=== PATIENT | female | born 1970 | race Caucasian/White ===

== ENCOUNTER → 2023-10-11 | Outpatient (REF) | payer BC, SELFPAY | LOC: DHSLP | PROVIDERS: ATTENDING PHYSICIAN Otolaryngology | DX: G47.33 Obstructive sleep apnea (adult) (pediatric) (principal) | CPT/HCPCS: 95810 ==

== ENCOUNTER 2024-10-07 15:22 | Emergency (ER) | payer BC, SELFPAY ==
--- NOTE | 2024-10-07 18:19 | ED.GENMED ---
History of Present Illness
<Brook Mccabe CARD ASSEMBLER - Last Filed: 10/08/24 23:01>
General
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
Source: patient
Exam Limitations: none
Time Seen by Provider: 10/07/24 18:11
Nursing documentation reviewed up to this point in time: agreed with
History of Present Illness
History of Present Illness:
54-year-old female with history of HTN, has been on Wegovy for the past year, history of in 1999, bladder mesh for prolapse in 2008, laparoscopy, hernia repair and cholecystectomy, presents for abdominal abdominal pain, pressure in her
vaginal area and low back pain after being constipated yesterday and pushing 'too hard' to have a bowel movement. She states 'I mean I was pushing too hard,' and states her vaginal area feels like it did when her daughter's head was about to be
born. She states she has been having frequent urination with small amounts yesterday. She states the vaginal pressure gets bad when she stands to walk.
Past History
<Brook Mccabe CARD ASSEMBLER - Last Filed: 10/08/24 23:01>
Past History
ED Past Medical History: HTN
ED Past Surgical History: Cholecystectomy, , Urological (Bladder mass for prolapse) and Other (Laparoscopy, hernia repair)
Social History
Tobacco: Non-smoker
Alcohol: Occasional
Personal:
Living: with family
Review of Systems
<Brook Mccabe CARD ASSEMBLER - Last Filed: 10/08/24 23:01>
Review of Systems
Allergies reviewed?: Yes
All Other Systems: ROS reviewed and negative except as documented in HPI and ROS
Constitutional: Denies fever
Respiratory: Denies trouble breathing
Cardiac: Denies chest pain
ABD/GI: Reports abdominal pain; Denies nausea, vomiting, diarrhea, bloody stools, black stools or anorexia
: Reports frequency (With smaller amounts than usual); Denies dysuria or flank pain
Musculoskeletal: Reports back pain (Low back pain)
Skin: Reports no symptoms
Neurological: Reports no symptoms
Phy Exam
<Brook Mccabe, CARD ASSEMBLER - Last Filed: 10/08/24 23:01>
Physical Exam
Physical Exam:
GENERAL: No acute distress. A&Ox3.
CONSTITUTIONAL: Afebrile.
EYES: clear, conjunctivae normal
ENMT: moist mucus membranes, Pharynx nl
RESPIRATORY: Regular respirations, nonlabored, lungs clear.
CARDIOVASCULAR: Regular rate and rhythm, no murmurs, no rubs.
GI: Soft, nontender, normal BS
: normal external genitalia, normal digital exam, no palpable masses, no prolapse, no swelling.
Rectal: no stool in rectal vault
MUSCULOSKELETAL: Moves with ease. Well perfused.
SKIN: Warm, dry, pink
PSYCH: Normal mood and affect. Well kept, interactive and appropriate
NEUROLOGIC: Awake, alert and oriented. No focal neurological deficits
Course
<Brook Mccabe, CARD ASSEMBLER - Last Filed: 10/08/24 23:01>
Orders/Labs/Results
Orders:
Orders
10/07/24 18:34
CT Abd/pel Without Iv Or Oral Urgent
Comment:
Reason For Exam: general abd pain, constipation
10/07/24 18:39
Complete Blood Count/With Diff Urgent
Comprehensive Metabolic Panel Urgent
Urinalysis Reflex To Culture Urgent
Date Specimen was Collected: 10/07/24
Time Specimen was Collected: 18:25
Urine Microscopic Reflex Cult Urgent
Urine Culture Urgent
ASHLEY Source: U
Specimen Description:
Date Specimen was Collected: 10/07/24
Time Specimen was Collected: 18:25
10/07/24 20:04
Ketorolac [Toradol] 30 mg IM NOW STA
Nitrofurantoin Monohydrate [Macrobid] 100 mg PO NOW STA
10/07/24 20:25
Ketorolac [Toradol] 30 mg .ROUTE .STK-MED ONE
Nitrofurantoin Monohydrate [Macrobid] 100 mg .ROUTE .STK-MED ONE
Abnormal Lab Results
10/07/24
18:39
RBC 4.07 L 10^6/uL
(4.20-5.40)
MCH 31.7 H pg
(27.0-31.0)
Chloride 109 H mmol/L
(98-107)
Ur Occult Blood Reflex 3+ A
(Negative)
Leukocyte Esterase Rfl 3+ A
(Negative)
Urine RBC 3-6 A /HPF
(0-2)
Urine WBC (Reflex) 26-30 A /HPF
(0-5)
Urine Bacteria (Reflex) Few A
(Negative)
10/07/24 18:39
10/07/24 18:39
Vital Signs
Initial and Last Documented VS:
Initial Vital Signs
Pulse Resp BP Pulse Ox
78 20 126/74 99
10/07/24 22:05 10/07/24 22:05 10/07/24 22:05 10/07/24 22:05
Last Documented Vital Signs
Pulse Resp BP Pulse Ox
78 20 126/74 99
10/07/24 22:05 10/07/24 22:05 10/07/24 22:05 10/07/24 22:05
<Johnnie Celestin PA-C - Last Filed: 10/07/24 22:27>
Orders/Labs/Results
Orders:
Orders
10/07/24 18:34
CT Abd/pel Without Iv Or Oral Urgent
Comment:
Reason For Exam: general abd pain, constipation
05/28/25 18:39
Complete Blood Count/With Diff Urgent
Comprehensive Metabolic Panel Urgent
Urinalysis Reflex To Culture Urgent
Date Specimen was Collected: 10/07/24
Time Specimen was Collected: 18:25
Urine Microscopic Reflex Cult Urgent
Urine Culture Urgent
ASHLEY Source: U
Specimen Description:
Date Specimen was Collected: 10/07/24
Time Specimen was Collected: 18:25
10/07/24 20:04
Ketorolac [Toradol] 30 mg IM NOW STA
Nitrofurantoin Monohydrate [Macrobid] 100 mg PO NOW STA
10/07/24 20:25
Ketorolac [Toradol] 30 mg .ROUTE .STK-MED ONE
Nitrofurantoin Monohydrate [Macrobid] 100 mg .ROUTE .STK-MED ONE
Abnormal Lab Results
10/07/24
18:39
RBC 4.07 L 10^6/uL
(4.20-5.40)
MCH 31.7 H pg
(27.0-31.0)
Chloride 109 H mmol/L
(98-107)
Ur Occult Blood Reflex 3+ A
(Negative)
Leukocyte Esterase Rfl 3+ A
(Negative)
Urine RBC 3-6 A /HPF
(0-2)
Urine WBC (Reflex) 26-30 A /HPF
(0-5)
Urine Bacteria (Reflex) Few A
(Negative)
10/07/24 18:39
10/07/24 18:39
Vital Signs
Initial and Last Documented VS:
Initial Vital Signs
Pulse Resp BP Pulse Ox
78 20 126/74 99
10/07/24 22:05 10/07/24 22:05 10/07/24 22:05 10/07/24 22:05
Last Documented Vital Signs
Pulse Resp BP Pulse Ox
78 20 126/74 99
10/07/24 22:05 10/07/24 22:05 10/07/24 22:05 10/07/24 22:05
<Brook Mccabe CARD ASSEMBLER - Last Filed: 10/08/24 23:01>
MDM/Problems Addressed
Differential Diagnosis Includes:
Urinary tract infection
MDM/Problems Addressed:
54-year-old female with history of HTN, has been on Wegovy for the past year, history of in 1999, bladder mesh for prolapse in 2008, laparoscopy, hernia repair and cholecystectomy, presents for abdominal abdominal pain, pressure in her
vaginal area and low back pain after being constipated yesterday and pushing 'too hard' to have a bowel movement. She states 'I mean I was pushing too hard,' and states her vaginal area feels like it did when her daughter's head was about to be
born. She states she has been having frequent urination with small amounts yesterday. She states the vaginal pressure gets bad when she stands to walk.
Afebrile, NAD
7:40 PM:
CBC normal
CMP normal
UA: 3+ blood, 3+ leukocyte Estrace, 3-6 RBCs, 26-30 WBCs, few bacteria
Will treat for UTI urine culture results pending
8:10 p .m.
Case discussed with Terry JOSHUA who will assume care from this point.
CT result pending
<Johnnie Celestin PA-C - Last Filed: 10/07/24 22:27>
*Radiology
Radiology exam reviewed: radiology read reviewed
*Critical Care Note
Total Time (30-74mins, 75-104mins- exclusive of procedures): Not Applicable
<Johnnie Celestin PA-C - Last Filed: 10/07/24 22:27>
Patient Management
Escalation/DeEscalation of care consider admission/obs:
Patient received in signout pending CT scan results. CT shows mild constipation but no other acute intra-abdominal processes. Patient stable for discharge home, can take any [id number] stool softeners. Prescription for Macrobid sent to
pharmacy.
ED Attending Note
<Brook Mccabe NP - Last Filed: 10/08/24 23:01>
-
Portions of this chart may have been created with voice recognition software.� Occasional wrong word or��sound alike� substitutions may have occurred due to the inherent limitations of voice recognition software.
Discharge Plan
Departure
Patient Disposition: Home (Routine Discharge)
Date of Disposition: 10/07/24
Time of Disposition: 22:03
Patient with high blood pressure during this ER visit?: Yes
Condition: Fair
Discharge Problem:
UTI (urinary tract infection), Constipation
Instructions: Urinary Tract Infection, Adult (DC), Abdominal Pain
Prescriptions:
New
nitrofurantoin macrocrystal 100 mg capsule
100 mg PO BID 7 Days Qty: 14 0RF
Referrals:
Marlin Altman CRNP [Family Provider, General]
Activity Restrictions/Additional Instructions:
As we discussed, I sent a prescription to your pharmacy for the antibiotic for your urinary tract infection. Start it tomorrow as you were given a dose here today.
Your CAT scan shows nothing worrisome.
You were given an injection of Toradol here today for your pain.
Drink plenty of fluids
Ibuprofen 600 mg, with food, every 6 hours as needed for pain.
See your doctor next week if not much better by then.
Interventions
Interventions:
*General Assessment Last Done: 10/07/24 17:43
*ED- Fall Risk Assessment Last Done: 10/07/24 17:43
*Nursing Disposition Last Done: 10/07/24 22:06
ED-Female Genitourinary Assessment Last Done: 10/07/24 17:43
Discharge Date and Time
Discharge Date/Time: 10/07/24 22:27
Print Language: OCCITAN
[2024-10-07 18:53] LABS: Urine Albumin Negative (Neg - Trace); Urine Bilirubin Negative (Negative); Urine Character Clear (Clear); Urine Glucose Negative (Negative); Urine Ketone Negative (Negative); Urine Leukocyte 3+ (Negative); Urine Nitrite Negative (Negative); Urine Occult Blood 3+ (Negative); Urine Urobilinogen Negative (Neg - 1+)
[2024-10-07 18:57] LABS: Urine Color Straw
[2024-10-07 19:07] LABS: Urine Squamous Cell 0-2 /LPF (Few)
[2024-10-07 19:08] LABS: Urine Bacteria Few (Negative); Urine White Cell 26-30 /HPF (0-5)
[2024-10-07 19:14] LABS: % Basophils 0.1 % (0-2); % Eosinophils 1.3 % (0-6); % Immature Granulocytes 0.1 % (0-0.5); % Lymphocytes 30.5 % (20.5-51.1); % Monocytes 6.1 % (1.7-9.3); % Neutrophils 61.9 % (42.2-75.2); Absolute Eosinophils 0.1 10^3/uL (0-0.7); Absolute Lymphocytes 2.1 10^3/uL (1.2-3.4); Absolute Monocytes 0.4 10^3/uL (0.1-0.6); Absolute Neutrophils 4.2 10^3/uL (1.4-6.5); Hematocrit 37.7 % (37.0-47.0); Hemoglobin 12.9 g/dL (12.0-16.0); Mean Corp Hgb Conc. 34.2 g/dL (33.0-37.0); Mean Corpuscular Hgb 31.7 pg (27.0-31.0); Mean Corpuscular Volume 92.6 fL (81.0-99.0); Mean Platelet Volume 9.6 fL (7.4-10.4); Nucleated Red Blood Cells % 0 %; Platelet Count 235 10^3/uL (130-400); Red Blood Cell Count 4.07 10^6/uL (4.20-5.40); Red Cell Dist. Width 12.6 % (11.5-14.5); White Blood Cell Count 6.8 10^3/uL (4.8-10.8)
[2024-10-07 19:29] LABS: ALT (SGPT) 23 U/L (0-35); AST (SGOT) 21 U/L (14-36); Albumin 4.2 g/dl (3.5-5.0); Alkaline Phosphatase 51 U/L (38-126); Blood Urea Nitrogen 11 mg/dl (7-17); Calcium 9.1 mg/dl (8.4-10.2); Carbon Dioxide 25 mmol/L (22-30); Chloride 109 mmol/L (98-107); Glucose 79 mg/dl (70-99); Potassium 3.9 mmol/L (3.5-5.1); Sodium 140 mmol/L (135-145); Total Bilirubin 0.8 mg/dl (0.2-1.3); Total Protein 6.6 g/dl (6.3-8.2); eGFR > 60.00
[2024-10-07] MEDS: TORADOL 30 MG IM (20:26)
[2024-10-07] MEDS: MACROBID 100 MG PO (20:26)
[2024-10-07 22:05] VITALS: BP 126/74
== END 2024-10-07 22:27 | disposition home or self-care (01) ==
LOC: EMR 15:22
PROVIDERS: Registered Nurse; EMERGENCY PHYSICIAN Student in an Organized Health Care Education/Training Program; FAMILY PHYSICIAN Nurse Practitioner
DX: N39.0 Urinary tract infection, site not specified (principal); K59.00 Constipation, unspecified; I10 Essential (primary) hypertension
CPT/HCPCS: 99284; 96372; 74176; 80053; 81003; 81015; 85025; 87086; 87088